=== PATIENT | male | born 1960 | race Caucasian/White ===

== ENCOUNTER 2023-07-09 08:12 | Outpatient (AMB) | payer OTHER, SELFPAY ==
--- NOTE | 2023-07-09 08:28 | A.OFFVIS_ITS ---
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 He reports history of multiple shoulder surgeries bilaterally. He states that his most recent surgery was approximately 30 years ago. The patient states that over the last few years he has lost significant range of motion in his right shoulder. He has had injections in the past which gave him minimal relief. He has also done physical therapy for 12 weeks over the last 6 months which aggravated his pain. The patient states that he has difficulty lifting his right hand above shoulder height. Allergies No Known Allergies Allergy (Verified 07/09/23 08:30) Medication List - Last Reconciled 07/09/23 by Venkatesh Bush MD allopurinol 300 mg PO DAILY [facility] Surgical History (Updated 07/09/23 @ 08:31 by Madhavi Teresa CMA) H/O shoulder surgery Social History Patient Tobacco Use Status: Never used Tobacco Current occupational status: employed 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 dept Physical Exam Vital Signs: BMI result Body Mass Index 29.7 Const Other: Well-nourished well-developed very friendly male awake alert and oriented x3 in no acute distress Extrem Other: Bilateral upper extremity examination shows good capillary refill, no skin lesions noted, normal sensation light touch Right shoulder examination shows decreased active and passive range of motion compared to his left shoulder, 4+ over 5 strength with supraspinatus testing, minimal crepitus with range of motion, positive impingement signs, tenderness over his acromioclavicular joint Results Reviewed Results Reviewed: Of the patient's right shoulder taken today show moderate glenohumeral joint changes type 2 severe acromioclavicular joint narrowing, multiple suture anchors the anterior glenoid, no acute bony abnormalities Assessment & Plan Assessment & Plan (1) Adhesive capsulitis of right shoulder: Code(s): M75.01 - Adhesive capsulitis of right shoulder Plan Mr. Villafuerte presents with progressively worsening right shoulder pain and stiffness due to impingement syndrome, acromioclavicular joint arthritis, glenohumeral joint arthritis and adhesive capsulitis. I had a lengthy discussion with the patient regarding the treatment options. He is not interested in undergoing total shoulder replacement surgery at this point. The risks and benefits of right shoulder arthroscopic surgery were discussed at length with the patient. The patient wishes to proceed. Surgery will most likely involve right shoulder diagnostic arthroscopy with distal clavicle excision, acromioplasty, glenohumeral joint debridement, anterior capsular release and manipulation under anesthesia. Patient will contact my office to pick a surgery date. He will follow-up as instructed. I did give him a prescription for Percocet to help with his pain in the meantime. Feel free to call me at any time should questions regarding his orthopedic management arise. Thank you very much for asking me to see this very friendly gentleman. I spent 22 minutes in reviewing the patient's records and imaging studies, seeing the patient and documenting in the medical record. Medications: New oxycodone-acetaminophen 5-325 mg (Percocet) Partial Fill upon patient request. 1 tab PO Q12H PRN 30 tabs 0RF pain Coding Level of Care Code New Pt Level 2 (49374) Diagnoses Adhesive capsulitis of right shoulder M75.01
[2023-07-09 08:30] VITALS: BMI 29.7
== END 2023-07-09 09:00 | disposition home or self-care (01) ==
PROVIDERS: Visit Provider Orthopaedic Surgery
DX: M75.01 Adhesive capsulitis of right shoulder (principal)
CPT/HCPCS: 99202

== ENCOUNTER 2023-07-09 10:11 | Outpatient (REF) | payer OTHER, SELFPAY ==
--- NOTE | ~2023-07-09 | XR_ITS ---
EXAMINATION: XR SHOULDER, RIGHT CLINICAL INFORMATION: Pain in left shoulder COMPARISON: None available. TECHNIQUE: AP neutral and transscapular Y views, 2 views, of the right shoulder. FINDINGS: Postsurgical changes with anchors along the glenoid. Severe degenerative changes at the glenohumeral joint with remodeling, hypertrophic change and subchondral sclerosis. XR/XR shoulder RT min 2V IMPRESSION: Postsurgical changes with anchors along the glenoid. Severe degenerative changes at the glenohumeral joint.
== END 2023-07-09 10:12 | disposition home or self-care (01) ==
LOC: HO.HOSX 10:11
PROVIDERS: Visit Provider Orthopaedic Surgery
DX: M25.512 Pain in left shoulder (principal); M75.01 Adhesive capsulitis of right shoulder
CPT/HCPCS: 73030

== ENCOUNTER 2023-09-04 07:49 | Outpatient (AMB) | payer OTHER, SELFPAY ==
--- NOTE | 2023-09-04 07:51 | MHC.OFFVIS ---
Intake Intake Visit Reasons: Pre-Op RT shld 09/12/23DR Intake Note: José Miguel is a 62 year old right hand dominant male who presents today with complaints of right shoulder pain. He reports history of multiple shoulder surgeries bilaterally. He states that his most recent surgery was approximately 30 years ago. The patient states that over the last few years he has lost significant range of motion in his right shoulder. He has had injections in the past which gave him minimal relief. He has also done physical therapy for 12 weeks over the last 6 months which aggravated his pain. The patient states that he has difficulty lifting his right hand above shoulder height. Pain management agreement reviewed and signed. Allergies No Known Allergies Allergy (Verified 09/04/23 07:52) Medication List - Last Reconciled 09/04/23 by Venkatesh Bush MD allopurinol 300 mg PO DAILY oxycodone-acetaminophen 5-325 mg (Percocet) 1 tab PO Q12H PRN PFSH Surgical History H/O shoulder surgery Social History Patient Tobacco Use Status: Never used Tobacco Current occupational status: employed Current occupation: [employer] Physical Exam Const Other: Well-nourished well-developed very friendly male awake alert and oriented x3 in no acute distress Lungs - clear to auscultation bilaterally with symmetric expansion Cardiovascular exam - regular rate and rhythm Abdominal exam - soft nontender nondistended Extrem Other: Bilateral upper extremity examination shows good capillary refill, no skin lesions noted, normal sensation light touch Right shoulder examination shows decreased range of motion when compared to his left shoulder, pain with range of motion, tenderness over his acromioclavicular joint, no instability Results Reviewed Results Reviewed: X-rays of the patient's right shoulder show severe acromioclavicular joint narrowing, type 2 acromion, moderate glenohumeral joint degenerative changes Assessment & Plan Assessment & Plan (1) Adhesive capsulitis of right shoulder: Code(s): M75.01 - Adhesive capsulitis of right shoulder Plan: Mr. Villafuerte presents with progressively worsening right shoulder pain and stiffness due to impingement syndrome, acromioclavicular joint arthritis and adhesive capsulitis as well as glenohumeral joint arthritis. I had a lengthy discussion with patient regarding the treatment options. At this point she has failed continued non operative treatments. The risks and benefits of right shoulder surgery were discussed at length with the patient. The patient wishes to proceed with surgery. Surgery will most likely involve right shoulder diagnostic arthroscopy with distal clavicle excision, acromioplasty, capsular release and manipulation under anesthesia. The patient was given a prescription for Dilaudid at his preoperative appointment. He will follow-up as instructed. Feel free to call me at any time should questions regarding his orthopedic management arise. I spent 22 minutes in reviewing the patient's records and imaging studies, seeing the patient and documenting in the medical record. Medications: New hydromorphone (Dilaudid) Partial Fill upon patient request. The patient will take Dilaudid instead of his oxycodone following his right shoulder surgery. 4 mg (2 x 2 mg) PO Q4H 30 tabs 0RF Coding Level of Care Code Est Pt Level 2 (13605) Diagnoses Adhesive capsulitis of right shoulder M75.01
== END 2023-09-04 08:13 | disposition home or self-care (01) ==
PROVIDERS: PCP Nurse Practitioner; Visit Provider Orthopaedic Surgery
DX: M75.01 Adhesive capsulitis of right shoulder (principal)
CPT/HCPCS: 99212

== ENCOUNTER → 2023-09-04 07:49 | Outpatient (BNVA) | payer OTHER, SELFPAY | PROVIDERS: PCP Nurse Practitioner; Visit Provider Orthopaedic Surgery ==

== ENCOUNTER 2023-09-12 07:10 | Day surgery (SDC) | payer OTHER, SELFPAY ==
--- NOTE | 2023-09-11 12:07 | P.CONAN_ITS ---
Documented by User: Марина Be NP 09/11/23 12:08 HPI - Anesthesia Eval Consult details Narrative: 63yo M for Right Shoulder Arthroscopy,distal clavical acromioplasty and manipulation PMFSH Active Problems Active Problems: All Active Problems (Updated 07/09/23 @ 09:05 by Venkatesh Bush MD) Adhesive capsulitis of right shoulder (Acute) Left shoulder pain (Acute) Past Medical History Medical History (Updated 09/11/23 @ 12:08 by Марина Be NP) HLD (hyperlipidemia) HTN (hypertension) Gout Surgical History Surgical History H/O shoulder surgery Social History Social History Patient Tobacco Use Status: Never used Tobacco Current occupational status: employed Current occupation: [employer] dept Meds Allergies Allergy/AdvReac Type Severity Reaction Status Date / Time No Known Allergies Allergy Verified 09/04/23 07:52 Active Medications: Current Medications Cefazolin Sodium/Dextrose (Ancef) 2 gm in 50 mls @ 100 mls/hr IV PREOP ONE Stop: 09/12/23 03:01 Home Medications Medication Instructions Recorded Confirmed Last Taken Type allopurinol 300 mg tablet 300 mg PO DAILY 07/09/23 07/09/23 Unknown History Exam Exam Date and Time: September 11, 2023 120 Assessment and Plan Assessment Anesthesia Assessment: Chart Reviewed Documented by User: David Romero MD 09/12/23 06:14 PMFSH Past Medical History Medical History (Updated 09/11/23 @ 12:08 by Марина Be NP) HLD (hyperlipidemia) HTN (hypertension) Gout Family History Family history of problems with anesthesia: No Surgical History Surgical History H/O shoulder surgery History of Problems with Anesthesia: No Social History Social History Patient Tobacco Use Status: Never used Tobacco Current occupational status: employed 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 Meds Allergies Allergy/AdvReac Type Severity Reaction Status Date / Time No Known Allergies Allergy Verified 09/04/23 07:52 Home Medications Medication Instructions Recorded Confirmed Last Taken Type allopurinol 300 mg tablet 300 mg PO DAILY 07/09/23 07/09/23 Unknown History Exam Airway Mallampati Class: II TM Dist: >3cm Neck ROM: Limited Heart: rrr Lungs: cta Assessment and Plan Assessment Anesthesia Assessment: Anesthesia Plan Discussed Final Anesthetic Review Family History of Problems with Anesthesia: No History of Problems with Anesthesia: No NPO: Yes ASA Class: II Final Preanesthetic Review: No Changes in Pt Med Stat, Meds/Allgs Chart Reviewed, Consent Obtained/Reviewed and Anes Risks/Benef Reviewed Patient Risk: Low Procedure Risk: Intermediate Anesthetic Plan Anesthetic Plan: GA and Regional Block Disposition: Standard PACU
[2023-09-12] VITALS (9 sets, daily range): BP systolic 103–184; BP diastolic 52–102; PULSE 55–72; RESP 16–20; TEMP 36.1–36.5; O2SAT 96–99; BMI 29.7
[2023-09-12] MEDS: Lactated Ringers 1,000 ML 100 ML IVCONT (08:29)
--- NOTE | 2023-09-12 10:19 | PM.OP ---
Brief Operative Note Date of Service: 09/12/23 Pre-op diagnosis: Right shoulder impingement syndrome, right shoulder arthritis, right shoulder adhesive capsulitis Post-op diagnosis: same Procedure: Right shoulder diagnostic arthroscopy with arthroscopic right shoulder glenohumeral joint debridement, arthroscopic right shoulder anterior capsular release, arthroscopic right shoulder acromioplasty, right shoulder manipulation under anesthesia Implants: none Surgeon: Venkatesh Bush MD Anesthesia: GLMA and regional Was an Catering Attendant used for this Procedure?: No Estimated blood loss (mL): 10 Pathology: none sent Condition: stable Disposition: PACU
--- NOTE | 2023-09-12 10:21 | W.PM.OPN ---
Operative Note Operative Note Date of Service: 09/12/23 Narrative: After the patient was identified as José Miguel Villafuerte and their right shoulder was initialed by myself the patient was brought to the holding area where a right shoulder interscalene regional block was performed by the anesthesiologist in routine fashion. The patient was then brought to the operating room where general anesthesia was induced by the anesthesiologist in routine fashion. The patient was given 2 g of IV Ancef preoperatively for infection prophylaxis. Examination under anesthesia of the patient's right shoulder showed decreased passive range of motion when compared to the left shoulder. The patient's right shoulder had passive forward flexion to 30 degrees compared to 170 degrees, external rotation to 10 degrees compared to 60 degrees, and internal rotation to 10 degrees compared to 40 degrees. The patient was gently positioned in the beach chair position with all bony prominences well padded. The patient's right shoulder region and upper extremity were prepped and draped in sterile fashion. A formal time-out was completed. A #11 scalpel blade was used to make a posterior portal 2 cm inferior and 1 cm medial to the posterolateral corner of the acromion. Blunt trocar technique was used to enter the glenohumeral joint in routine fashion. An anterior portal was made just lateral to the coracoid process after proper positioning was confirmed using a spinal needle. Diagnostic arthroscopy showed diffuse grade 3 and 4 degenerative changes of the glenoid and humeral head articular surfaces. The articular surfaces were then made smooth using the arthroscopic shaver. There was no evidence of rotator cuff tearing. There was no evidence of injury to the biceps tendon or its insertion onto the glenoid. There was inflammation of the anterior joint capsule consistent with adhesive capsulitis. The ArthroCare Wand was then used to perform an anterior capsular release between the inferior border of the biceps tendon and the superior border of the subscapularis tendon. The arthroscope was then placed from the posterior portal into the subacromial space. A lateral portal was made 2 fingerbreadths lateral to the anterior lateral corner of the acromion. The ArthroCare Wand was used to ablate soft tissues along the undersurface of the acromion as well as to excise the coracoacromial ligament. There was a sharp spur along the undersurface of the acromion which was removed using the hooded bur. The arthroscope was then placed into the lateral portal and the acromioplasty was completed with the bur in the posterior portal using the posterior aspect of the acromion as a cutting block. The ArthroCare Wand was then brought in through the anterior portal and was used to ablate soft tissues along the acromioclavicular joint and distal clavicle. There was already a space of 8 mm at the acromioclavicular joint so no distal clavicle excision was indicated. Any remaining bursal tissue was removed using the arthroscopic shaver. The subacromial space was irrigated and then drained. All arthroscopic instruments were removed. A gentle manipulation under anesthesia was then performed. Following the manipulation the right shoulder had forward flexion to 150 degrees, external rotation to 30 degrees and internal rotation to 30 degrees. The 3 portals were closed with 3-0 nylon interrupted suture. The subacromial space was injected with Marcaine. Dry sterile dressing was placed over all incisions. The patient's right upper extremity was placed into a sling. The patient was awoken and extubated in the operating room. The patient was transferred to the recovery room in stable condition.
[2023-09-12] MEDS: cefTRIAXone sodium 1 GM in 0.9 % Sodium Chloride 50 ML IV (10:47)
== END 2023-09-12 12:06 | disposition home or self-care (01) ==
PROVIDERS: PCP Nurse Practitioner; Visit Provider Orthopaedic Surgery
PROC: (CPT 29805; principal; 2023-09-12 09:00)
DX: M75.41 Impingement syndrome of right shoulder (principal); M19.011 Primary osteoarthritis, right shoulder; M75.01 Adhesive capsulitis of right shoulder; M10.9 Gout, unspecified; I10 Essential (primary) hypertension; E78.5 Hyperlipidemia, unspecified; Z79.899 Other long term (current) drug therapy; Z98.890 Other specified postprocedural states
CPT/HCPCS: 29825; 29826; J0171; J0690; J0696; J1100; J2371; J2405; J2795

== ENCOUNTER → 2023-09-12 07:10 | Outpatient (BNV) | payer OTHER, SELFPAY | PROVIDERS: PCP Nurse Practitioner; Visit Provider Orthopaedic Surgery | DX: M75.31 Calcific tendinitis of right shoulder (principal); M19.011 Primary osteoarthritis, right shoulder; M75.41 Impingement syndrome of right shoulder | CPT/HCPCS: 29825; 29826 ==

== ENCOUNTER 2023-09-23 11:11 | Outpatient (AMB) | payer OTHER, SELFPAY ==
--- NOTE | 2023-09-23 11:28 | MHC.OFFVIS ---
Intake Vital Signs 09/23/23 11:29 Height 6 ft 1 in Weight 225 lb BMI 29.7 Intake Visit Reasons: PO RT SHLD 09/12/23DR Intake Note: José Miguel a 63 year old male presents today for a post operative right shoulder , DOS 09/12/23 DR. Patient reports this morning he woke up in quite a bit of pain, stating episodes of pain that comes mostly at night. He feels a catching with certain positions. He has returned to lifting light weights at the gym. He denies any fevers or chills. He has been taking Dilaudid which gives him fairly good relief Allergies No Known Allergies Allergy (Verified 09/23/23 11:34) Medication List - Last Reconciled 09/23/23 by Venkatesh Bush MD hydromorphone (Dilaudid) 4 mg (2 x 2 mg) PO Q4H PFSH Medical History (Updated 09/23/23 @ 11:55 by Venkatesh Bush MD) Hyperthyroidism Kidney stones HLD (hyperlipidemia) HTN (hypertension) Gout Surgical History H/O removal of testicle H/O wrist surgery H/O knee surgery H/O shoulder surgery Social History Patient Tobacco Use Status: Former Tobacco user Quit Date: 2021 Tobacco use type: Cigarette Current occupational status: employed Current occupation: [employer] Physical Exam Vital Signs: BMI result Body Mass Index 29.7 Extrem Other: Right shoulder examination shows that the surgical incisions are well healed, no erythema, forward flexion to 150 degrees, external rotation 40 degrees, internal rotation to level L4, minimal crepitus with range of motion, mild discomfort with range of motion Assessment & Plan Assessment & Plan (1) Right shoulder pain: Code(s): M25.511 - Pain in right shoulder Plan Mr. Villafuerte doing very well after undergoing right shoulder arthroscopic surgery on 09/12/2023. His sutures were removed and Steri-Strips placed over his incisions. He will continue with his home stretching program. I did refill his prescription for Dilaudid. He will contact me prior to his follow-up appointment in 6 weeks should any questions or concerns arise. Feel free to call me at any time should questions regarding his orthopedic management arise. Medications: Refilled hydromorphone (Dilaudid) Partial Fill upon patient request. The patient will take Dilaudid instead of his oxycodone following his right shoulder surgery. 4 mg (2 x 2 mg) PO Q4H 30 tabs 0RF Coding Level of Care Code Global (31148) Diagnoses Right shoulder pain M25.511
[2023-09-23 11:29] VITALS: BMI 29.7
== END 2023-09-23 11:54 | disposition home or self-care (01) ==
PROVIDERS: PCP Nurse Practitioner; Visit Provider Orthopaedic Surgery
DX: M25.511 Pain in right shoulder (principal)
CPT/HCPCS: 99024

== ENCOUNTER → 2023-09-23 11:11 | Outpatient (BNVA) | payer OTHER, SELFPAY | PROVIDERS: PCP Nurse Practitioner; Visit Provider Orthopaedic Surgery ==

== ENCOUNTER 2023-11-25 09:32 | Outpatient (AMB) | payer OTHER, SELFPAY ==
--- NOTE | 2023-11-25 09:36 | A.OFFVIS_ITS ---
Intake Intake Visit Reasons: PO RT SHLD 09/12/23DR Intake Note: José Miguel a 63 year old male presents today for a post operative right shoulder , DOS 09/12/23 DR. Patient reports his pain is getting better. He continues with his home stretching program. He denies any fevers or chills. Today he is most concerned with progressively worsening right knee pain and giving way. He has had 3 surgeries on his right knee in the past. The most recent surgery was several years ago. He did get fairly good relief from that procedure. He states that his right knee will give out several times per day. He has done physical therapy which aggravated his symptoms. He has also had injections in the past which gave him minimal relief. Allergies No Known Allergies Allergy (Verified 11/25/23 09:36) Medication List - Last Reconciled 11/26/23 by Venkatesh Bush MD hydromorphone (Dilaudid) 2 mg PO Q12H PRN PFSH Medical History (Updated 11/25/23 @ 09:51 by Venkatesh Bush MD) Hyperthyroidism Kidney stones HLD (hyperlipidemia) HTN (hypertension) Gout Surgical History H/O removal of testicle H/O wrist surgery H/O knee surgery H/O shoulder surgery Social History Patient Tobacco Use Status: Former Tobacco user Quit Date: 2021 Tobacco use type: Cigarette Current occupational status: employed Current occupation: [employer] Physical Exam Const Other: Well-nourished well-developed very friendly male awake alert and oriented x3 in no acute distress Lungs - clear to auscultation bilaterally with symmetric expansion Cardiovascular exam - regular rate and rhythm Abdominal exam - soft nontender nondistended Extrem Other: Bilateral lower extremity examination shows good capillary refill, no skin lesions noted, normal sensation light touch Right knee examination shows a minimal effusion, mild crepitus with range of motion, tenderness along his medial and lateral joint lines, positive Val's test, no instability Right shoulder examination shows slightly decreased range of motion when compared to his left shoulder, the surgical incisions are well healed, no erythema, minimal discomfort with range of motion Results Reviewed Results Reviewed: X-rays of the patient's right knee taken today show moderate joint space narrowing, no acute bony abnormalities Assessment & Plan Assessment & Plan (1) Right knee pain: Code(s): M25.561 - Pain in right knee (2) Right shoulder pain: Code(s): M25.511 - Pain in right shoulder Plan Mr. Villafuerte continues to do well after undergoing left shoulder arthroscopic surgery on 09/12/2023. He will continue with his physical therapy exercises to prevent stiffness. The do's and don'ts of lifting were discussed at length with the patient. The patient also has progressively worsening right knee pain and mechanical symptoms due to degenerative joint disease, medial meniscus tearing and possible lateral meniscus tearing. I had a lengthy discussion with the patient regarding the treatment options. The patient wishes to hold off on total knee replacement surgery for as long as possible. Revision right knee arthroscopic surgery risks and benefits were discussed at length with the patient. Because of the patient's mechanical symptoms he may get significant improvement in his symptoms following an arthroscopic procedure. Patient understands that he may not get 100% relief of his symptoms depending on the severity of his degenerative changes. The patient wishes to proceed with the arthroscopic surgery. He will contact my office to pick a surgery date. He will follow-up as instructed. F eel free to call me at any time should questions regarding his orthopedic management arise. I spent 22 minutes in reviewing the patient's records and imaging studies, seeing the patient and documenting in the medical record. Orders: Orders XR knee RT 3V 11/25/23 M25.561 - Pain in right knee Coding Level of Care Code Est Pt Level 2 (25832) Diagnoses Right knee pain M25.561 Right shoulder pain M25.511
== END 2023-11-25 10:13 | disposition home or self-care (01) ==
PROVIDERS: PCP Nurse Practitioner; Visit Provider Orthopaedic Surgery
DX: M25.561 Pain in right knee (principal); M25.511 Pain in right shoulder
CPT/HCPCS: 99213

== ENCOUNTER 2023-11-25 09:32 | Outpatient (REF) | payer OTHER, SELFPAY ==
--- NOTE | ~2023-11-25 | XR_ITS ---
EXAMINATION: XR KNEE, RIGHT CLINICAL INFORMATION: Pain in right knee. COMPARISON: None available. TECHNIQUE: 3 views of the right knee. FINDINGS: The bones are diffusely demineralized. No significant joint effusion. Advanced tricompartmental degenerative change most severe in the patellofemoral and medial compartments with compartment space narrowing and hypertrophic change. XR/XR knee RT 3V IMPRESSION: Advanced tricompartmental degenerative change.
== END 2023-11-25 09:33 | disposition home or self-care (01) ==
LOC: HO.HOSX 09:32
PROVIDERS: PCP Nurse Practitioner; Visit Provider Orthopaedic Surgery
DX: M25.561 Pain in right knee (principal); M25.511 Pain in right shoulder
CPT/HCPCS: 73562

== ENCOUNTER 2024-02-11 07:49 | Outpatient (AMB) | payer OTHER, SELFPAY ==
--- NOTE | 2024-02-11 07:53 | A.OFFVIS_ITS ---
Intake Intake Visit Reasons: Discuss Right TKA instead of Right knee Intake Note: José Miguel is a 63 year old male who presents with progressively worsening right knee pain. The patient describes his pain as sharp and severe in nature, 09/02. His pain has gotten worse in spite of continued non operative treatments as well as 3 knee arthroscopic surgeries in the past. The most recent surgery gave him minimal relief. Has had injections in the past which gave him no relief. He has also tried Tylenol, anti-inflammatory medicines and Dilaudid which gave him only mild relief. The patient has difficulty walking even short distances because of his pain. Has done physical therapy which aggravated his pain. At this point his right knee pain is interfering with his activities of daily living and his ability to sleep well through the night. Patient reports he is scheduled for Right knee on 03/05/2024 and would like to discuss changing his surgery to TKA. Allergies No Known Allergies Allergy (Verified 11/25/23 09:36) Medication List - Last Reconciled 02/11/24 by Venkatesh Bush MD hydromorphone 2 mg (1/2 x 4 mg) PO Q24H PRN PFSH Medical History (Updated 02/11/24 @ 08:06 by Venkatesh Bush MD) Hyperthyroidism Kidney stones HLD (hyperlipidemia) HTN (hypertension) Gout Surgical History H/O removal of testicle H/O wrist surgery H/O knee surgery H/O shoulder surgery Social History Patient Tobacco Use Status: Former Tobacco user Quit Date: 2021 Tobacco use type: Cigarette Current occupational status: employed Current occupation: [employer] dept Physical Exam Const Other: Well-nourished well-developed very friendly male awake alert and oriented x3 in no acute distress Extrem Other: Bilateral lower extremity examination shows good capillary refill, no skin lesions noted, normal sensation light touch Right knee examination shows a minimal effusion, palpable crepitus with range of motion, pain with range of motion, range of motion from -3 degrees to 115 degrees, no instability Results Reviewed Results Reviewed: X-rays of the patient's right knee show end-stage degenerative joint disease with grade 4 qstj-qt-zzis arthritis, subchondral sclerosis, osteophyte formation, no acute abnormalities Assessment & Plan Assessment & Plan (1) Arthritis of right knee: Code(s): M17.11 - Unilateral primary osteoarthritis, right knee Plan Mr. Villafuerte presents with progressively worsening right knee pain due to end- stage degenerative joint disease. I discussion with the patient regarding the treatment options. At this point he has failed both continued non operative treatments as well as 3 arthroscopic surgeries. The risks and benefits of right total knee replacement surgery were discussed at length with the patient. The patient wishes to proceed with surgery. He will be scheduled for next available date. I will see him back prior to his surgery to answer any final questions that he might have. Feel free to call me at any time should questions regarding his orthopedic management arise. I spent 22 minutes in reviewing the patient's records and imaging studies, seeing the patient and documenting in the medical record. Coding Level of Care Code Est Pt Level 2 (36567) Diagnoses Arthritis of right knee M17.11
== END 2024-02-11 08:03 | disposition home or self-care (01) ==
PROVIDERS: PCP Nurse Practitioner; Visit Provider Orthopaedic Surgery
DX: M17.11 Unilateral primary osteoarthritis, right knee (principal)
CPT/HCPCS: 99214

== ENCOUNTER → 2024-02-11 07:49 | Outpatient (BNVA) | payer OTHER, SELFPAY | PROVIDERS: PCP Nurse Practitioner; Visit Provider Orthopaedic Surgery ==

== ENCOUNTER 2024-02-17 09:16 | Outpatient (AMB) | payer OTHER, SELFPAY ==
[2024-02-17 09:19] VITALS: BP 175/100; BMI 29.7
--- NOTE | 2024-02-17 09:19 | A.OFFVIS_ITS ---
Intake Vital Signs 02/17/24 09:19 Height 6 ft 1 in Weight 225 lb BMI 29.7 BP 175/100 H Intake Visit Reasons: Pain control Intake Note: José Miguel is a 63 year old male who presents with progressively worsening right knee pain. The patient describes his pain as sharp and severe in nature, 09/02. His pain has gotten worse in spite of continued non operative treatments as well as 3 knee arthroscopic surgeries in the past. The most recent surgery gave him minimal relief. Has had injections in the past which gave him no relief. He has also tried Tylenol, anti-inflammatory medicines and Dilaudid which gave him only mild relief. The patient has difficulty walking even short distances because of his pain. Has done physical therapy which aggravated his pain. At this point his right knee pain is interfering with his activities of daily living and his ability to sleep well through the night. Allergies No Known Allergies Allergy (Verified 02/17/24 09:23) Medication List - Last Reconciled 02/17/24 by Venkatesh Bush MD celecoxib (Celebrex) 200 mg PO BID tramadol 50 mg PO Q12H PRN PFSH Medical History Hyperthyroidism Kidney stones HLD (hyperlipidemia) HTN (hypertension) Gout Surgical History H/O removal of testicle H/O wrist surgery H/O knee surgery H/O shoulder surgery Social History Patient Tobacco Use Status: Former Tobacco user Quit Date: 2021 Tobacco use type: Cigarette Current occupational status: employed Current occupation: [employer] Physical Exam Vital Signs: Last Vital Signs BP 175/100 H 02/17/24 09:19 BMI result Body Mass Index 29.7 Const Other: Well-nourished well-developed very friendly male awake alert and oriented x3 in no acute distress Extrem Other: Bilateral lower extremity examination shows good capillary refill, no skin lesions noted, normal sensation light touch Right knee examination shows a mild effusion, palpable crepitus with range of motion, pain with range of motion, range of motion from -3 degrees to 115 degrees, no instability Results Reviewed Results Reviewed: X-rays of the patient's right knee show end-stage degenerative joint disease with grade 4 [id number]-[id number] arthritis, subchondral sclerosis, no acute bony abnormalities Assessment & Plan Assessment & Plan (1) Arthritis of right knee: Code(s): M17.11 - Unilateral primary osteoarthritis, right knee Plan Mr. Villafuerte presents with progressively worsening right knee pain due to end- stage degenerative joint disease. I had a lengthy discussion with the patient regarding the treatment options. At this point he has failed continued non operative treatments. The risks and benefits of right total knee replacement surgery were discussed at length with the patient. The patient wishes to proceed with surgery. He will be scheduled for a next available date. He will follow-up as instructed. I did give him a prescription for tramadol and a prescription for Celebrex to help with his pain in the meantime. Feel free to call me at any time should questions regarding his orthopedic management arise. I spent 22 minutes in reviewing the patient's records and imaging studies, seeing the patient and documenting in the medical record. Medications: New celecoxib (Celebrex) 200 mg PO BID 60 caps 2RF tramadol 50 mg PO Q12H PRN 60 tabs 0RF pain Coding Level of Care Code Est Pt Level 2 (48857) Diagnoses Arthritis of right knee M17.11
== END 2024-02-17 09:53 | disposition home or self-care (01) ==
PROVIDERS: PCP Nurse Practitioner; Visit Provider Orthopaedic Surgery
DX: M17.11 Unilateral primary osteoarthritis, right knee (principal)
CPT/HCPCS: 99214

== ENCOUNTER → 2024-02-17 09:16 | Outpatient (BNVA) | payer OTHER, SELFPAY | PROVIDERS: PCP Nurse Practitioner; Visit Provider Orthopaedic Surgery ==

== ENCOUNTER → 2024-04-29 08:57 | Outpatient (BNVA) | payer OTHER, SELFPAY | PROVIDERS: PCP Nurse Practitioner; Visit Provider Orthopaedic Surgery ==

== ENCOUNTER 2024-05-20 08:12 | Outpatient (AMB) | payer OTHER, SELFPAY ==
--- NOTE | 2024-05-20 08:14 | A.OFFVIS_ITS ---
Vital Signs 05/20/24 08:15 Height 6 ft 1 in Weight 225 lb BMI 29.7 Intake Visit Reasons: R TKA 05/24/24 w/DR Intake Note: José Miguel is a 63 year old male who presents with progressively worsening right knee pain. The patient describes his pain as sharp and severe in nature, 09/02. His pain has gotten worse in spite of continued non operative treatments as well as 3 knee arthroscopic surgeries in the past. The most recent surgery gave him minimal relief. Has had injections in the past which gave him no relief. He has also tried Tylenol, anti-inflammatory medicines and Dilaudid which gave him only mild relief. The patient has difficulty walking even short distances because of his pain. Has done physical therapy which aggravated his pain. At this point his right knee pain is interfering with his activities of daily living and his ability to sleep well through the night. Allergies No Known Allergies Allergy (Verified 05/20/24 08:18) Medication List - Last Reconciled 05/20/24 by Venkatesh Bush MD losartan 100 mg PO BEDTIME walker Folding front wheeled walker [facility] Medical History Chronic shoulder pain Chronic knee pain LORY (generalized anxiety disorder) Hemorrhoid History of kidney stones Hx of testicular cancer Hyperparathyroidism Lower urinary tract symptoms (LUTS) Low vitamin D level Osteoarthritis Alcohol use disorder in remission Kidney stones HLD (hyperlipidemia) HTN (hypertension) Gout Surgical History History of parathyroidectomy H/O removal of testicle H/O wrist surgery H/O knee surgery H/O shoulder surgery Social History Are you a primary lead care manager to a significant other at home: No Do you presently have visiting nurse or other home services: No Patient Tobacco Use Status: Former Tobacco user Tobacco use type: Cigarette Current occupational status: employed Current occupation: [employer] Physical Exam Vital Signs: BMI result Body Mass Index 29.7 Const Other: Well-nourished well-developed very friendly male awake alert and oriented x3 in no acute distress Extrem Other: Bilateral lower extremity examination shows good capillary refill, no skin lesions noted, normal sensation light touch Right knee examination shows a minimal effusion, palpable crepitus with range of motion, pain with range of motion, range of motion from -3 degrees to 115 degrees, no instability Results Reviewed Results Reviewed: X-rays of the patient's right knee show severe joint space narrowing with grade 4 pstt-al-tgiq arthritis, subchondral sclerosis, osteophyte formation, no acute bony abnormalities Assessment & Plan Assessment & Plan (1) Arthritis of right knee: Code(s): M17.11 - Unilateral primary osteoarthritis, right knee Category: Medical Plan Mr. Villafuerte presents with progressively worsening right knee pain due to end- stage degenerative joint disease. I had a lengthy discussion with the patient regarding the treatment options. At this point he has failed continued arthroscopic surgeries and non operative treatment. The risks and benefits of right total knee replacement surgery were discussed at length with the patient. The patient wishes to proceed with surgery. clinical services specialist will be consulted following his surgery for home physical therapy and nursing. The patient will follow-up as instructed. Feel free to call me at any time should questions regarding his orthopedic management arise. I spent 22 minutes in reviewing the patient's records and imaging studies, seeing the patient and documenting in the medical record. Coding Level of Care Code Est Pt Level 3 (87701) Diagnoses Arthritis of right knee M17.11
[2024-05-20 08:15] VITALS: BMI 29.7
== END 2024-05-20 08:34 | disposition home or self-care (01) ==
LOC: HO.HOS 08:12
PROVIDERS: PCP Nurse Practitioner; Visit Provider Orthopaedic Surgery
DX: M17.11 Unilateral primary osteoarthritis, right knee (principal)
CPT/HCPCS: 99214

== ENCOUNTER → 2024-05-20 08:12 | Outpatient (BNVA) | payer OTHER, SELFPAY | PROVIDERS: PCP Nurse Practitioner; Visit Provider Orthopaedic Surgery ==

== ENCOUNTER 2024-05-24 06:00 | Inpatient (IN) | payer OTHER, SELFPAY ==
[2024-05-17 13:31] VITALS: BP 165/101; PULSE 65; RESP 18; O2SAT 97; BMI 29.2
--- NOTE | 2024-05-17 14:03 | HO.ANESPROP2 ---
Documented by User: Марина Be NP 05/20/24 15:02 HPI - Anesthesia Eval Consult details Narrative: 63yo M for Right Knee Replacement Total, 05/24/24 Medically optimized per [facility] preop clinic No recent illness No CP/SOB with strength training dailly Urinary retention post parathyroidectomy. Discussed increased risk of POUR with spinal anesthesia. [facility] Active Problems Active Problems: All Active Problems Arthritis of right knee (Acute) Right knee pain (Acute) Right shoulder pain (Acute) Adhesive capsulitis of right shoulder (Acute) Left shoulder pain (Acute) Past Medical History Medical History Chronic shoulder pain Chronic knee pain LORY (generalized anxiety disorder) Hemorrhoid History of kidney stones Hx of testicular cancer Hyperparathyroidism Lower urinary tract symptoms (LUTS) Low vitamin D level Osteoarthritis Alcohol use disorder in remission Kidney stones HLD (hyperlipidemia) HTN (hypertension) Gout Family History Family history of problems with anesthesia: No Surgical History Surgical History History of parathyroidectomy H/O removal of testicle H/O wrist surgery H/O knee surgery H/O shoulder surgery History of Problems with Anesthesia: No Social History Social History Are you a primary career law clerk to a significant other at home: No Do you presently have visiting nurse or other home services: No Patient Tobacco Use Status: Former Tobacco user Tobacco use type: Cigarette Use of substances other than those prescribed or required for medical reasons: No Have you been hit, kicked, punched, or otherwise hurt by someone within the past year? If so, by whom?: No Are you DNR?: No Advance Directives: No Advance Directives Information Provided: Yes Advance Directives on File: No Recently lost weight without trying: No Eating poorly because of decreased appetite: No Nutrition Risks: No Nutritional Risk Poor oral hygiene: Yes (one missing on the bottom) Current occupational status: employed Current occupation: [employer] dept Meds Allergies Allergy/AdvReac Type Severity Reaction Status Date / Time No Known Allergies Allergy Verified 05/24/24 06:09 Home Medications ?Medication ?Instructions ?Recorded ?Confirmed ?Last Taken ?Type losartan 100 mg tablet 100 mg PO BEDTIME 05/14/24 05/24/24 05/24/24 History Exam Height,Weight and Vital Signs: Height 6 ft 1 in Weight 100.244 kg Last Vital Signs Pulse 65 05/17/24 13:31 Resp 18 05/17/24 13:31 BP 165/101 H 05/17/24 13:31 Pulse Ox 97 05/17/24 13:31 O2 Del Method Room Air 05/17/24 13:31 Pertinent Lab Results Pertinent Lab Results: 04/2024 CBC and BMP WNL Narrative Narrative: EKG 04/2024 NSR @ 63 Airway Mallampati Class: II TM Dist: >3cm Loose/Missing/Broken Teeth: Yes (1 x pulled lower left) Heart: RRR Lungs: CTAB Assessment and Plan Assessment Anesthesia Assessment: Anesthesia Plan Discussed and PAT Visit Final Anesthetic Review Family History of Problems with Anesthesia: No History of Problems with Anesthesia: No Documented by User: Mely Saab MD 05/24/24 09:00 [facility] Past Medical History Medical History Chronic shoulder pain Chronic knee pain LORY (generalized anxiety disorder) Hemorrhoid History of kidney stones Hx of testicular cancer Hyperparathyroidism Lower urinary tract symptoms (LUTS) Low vitamin D level Osteoarthritis Alcohol use disorder in remission Kidney stones HLD (hyperlipidemia) HTN (hypertension) Gout Surgical History Surgical History History of parathyroidectomy H/O removal of testicle H/O wrist surgery H/O knee surgery H/O shoulder surgery Social History Social History Are you a primary career law clerk to a significant other at home: No Do you presently have visiting nurse or other home services: No Patient Tobacco Use Status: Former Tobacco user Tobacco use type: Cigarette Use of substances other than those prescribed or required for medical reasons: No Have you been hit, kicked, punched, or otherwise hurt by someone within the past year? If so, by whom?: No Are you DNR?: No Advance Directives: No Advance Directives Information Provided: Yes Advance Directives on File: No Recently lost weight without trying: No Eating poorly because of decreased appetite: No Nutrition Risks: No Nutritional Risk Poor oral hygiene: Yes (one missing on the bottom) Current occupational status: employed Current occupation: [employer] de[employer] Meds Allergies Allergy/AdvReac Type Severity Reaction Status Date / Time No Known Allergies Allergy Verified 05/24/24 06:09 Home Medications ?Medication ?Instructions ?Recorded ?Confirmed ?Last Taken ?Type losartan 100 mg tablet 100 mg PO BEDTIME 05/14/24 05/24/24 05/24/24 History Assessment and Plan Final Anesthetic Review NPO: Yes ASA Class: III Final Preanesthetic Review: No Changes in Pt Med Stat, Meds/Allgs Chart Reviewed, Consent Obtained/Reviewed and Anes Risks/Benef Reviewed Patient Risk: Intermediate Procedure Risk: Intermediate Anesthetic Plan Anesthetic Plan: Spinal and Regional Block Disposition: Standard PACU
[2024-05-17 15:46] LABS: MRSA Nasal PCR NEGATIVE (Negative); SA Nasal PCR NEGATIVE (Negative)
[2024-05-24] VITALS (10 sets, daily range): BP systolic 125–168; BP diastolic 76–100; PULSE 57–80; RESP 12–20; TEMP 36.1–37.1; O2SAT 97–100
[2024-05-24] MEDS: Lactated Ringers 1,000 ML 100 ML IVCONT ×3 (06:34→23:16)
--- NOTE | 2024-05-24 09:00 | HO.POSTANES ---
Post Anesthesia Evaluation Post Anesthesia Evaluation Date of Service: 05/24/24 Vital Signs: Vital Signs Temp Pulse Resp BP Pulse Ox O2 Del Method 05/24/24 07:10 97.6 F 57 16 168/100 H 98 Room Air
--- NOTE | 2024-05-24 10:21 | PM.OP ---
Brief Operative Note Date of Service: 05/24/24 Pre-op diagnosis: Right knee degenerative joint disease Post-op diagnosis: same Procedure: Right total knee arthroplasty Implants: [place] [employer] cemented posterior stabilized total knee arthroplasty with a femoral component size 5 right, tibial component size 6, polyethylene liner size 6 with 10 mm of thickness, an asymmetric patellar component size 35 with 10 mm of thickness Surgeon: Venkatesh Bush MD Anesthesia: regional and spinal Was an Corporate Director Of Pharmacy used for this Procedure?: No Estimated blood loss (mL): 200 Pathology: other (Bony fragments from the right femur, tibia and patella) Condition: stable Disposition: PACU
--- NOTE | 2024-05-24 10:27 | P.OP_ITS ---
Operative Note Operative Note Date of Service: 05/24/24 Narrative: After the patient was identified as Gaviota Villafuerte and his right knee was initialed by myself the patient was brought to the holding area where a right leg nerve block was performed by the anesthesiologist in routine fashion. The patient was then brought to the operating room where conscious sedation and spinal anesthesia were performed by the anesthesiologist in routine fashion. The patient was given 2 g of IV Ancef preoperatively for infection prophylaxis. The patient's right lower extremity was prepped and draped in sterile fashion. A formal time-out was completed. The patient's right knee was placed onto a s mall bump to produce 30? of knee flexion during exposure. A #10 scalpel blade was used to make a midline incision extending 1 handbreadth proximal and distal to the patella. A second #10 scalpel blade was used to dissect the subcutaneous tissues down to the extensor mechanism. The subcutaneous flaps were maintained as thick as possible. A medial parapatellar arthrotomy was then performed using a #10 scalpel blade. The arthrotomy was begun just medial to the patellar tendon. The arthrotomy was continued 1 cm medial to the patella and then 5 mm into the medial aspect of the quadriceps tendon. The infrapatellar fat pad was partially excised to help with exposure. The soft tissue retinaculum was raised one-half of the way around the medial aspect of the proximal tibia. The patella was everted and the knee was flexed to 90?. There was no injury to the patellar tendon or its insertion onto the tibial tubercle. A drill bit was introduced into the distal aspect of the femur with a starting point 1 cm anterior to the origin of the posterior cruciate ligament. The intramedullary alignment kwame was put into place. The distal alignment guide was set for a 5 degree valgus cut. The distal cutting block was put into place and was held with 4 pins. The intramedullary alignment kwame was removed. Soft tissues were retracted in the distal femoral cut was made using a sagittal saw. The distal aspect of the femur measured to be a size 5 right component. Two drill holes were placed into the distal aspect of the femur marking 3? of external rotation. The distal cutting block was impacted into place and was held with 2 pins. Soft tissues were retracted and the 4 distal femoral cuts were made using a sagittal saw. Final notching and drilling of the distal aspect of the femur were performed in routine fashion. The trial femoral component was impacted into place. The knee was taken through a full range of motion. The patella tracked well. The patella was everted and the knee was flexed to 90?. The trial component was removed and our attention was directed to the proximal tibia. The medial and lateral menisci were removed using a #10 scalpel blade. A small rim of the medial meniscus was left intact to help prevent injury to the medial collateral ligament. A drill bit was then introduced into the proximal tibia with a starting point midway from medial to lateral and one-third of the way posteriorly. The intramedullary alignment kwame was put into place. The proximal tibial cutting guide was placed over the alignment kwame in line with the 2nd toe. The guide was held in place using 3 pins. The intramedullary alignment kwame was removed. Soft tissues were retracted and the proximal tibial cut was made using a sagittal saw. The proximal tibia measured to be a size 6 component. The tibial tray was put into place with a 10 mm liner. The femoral component was impacted into place. The knee was taken through a full range of motion. There was full flexion and full extension. There was no instability with varus or valgus stress testing with the knee in flexion or extension. The patella tracked well with no medially directed force. The rotation of the tibial tray was marked using electrocautery with the knee in extension. The patella was everted and the knee was flexed to 90?. All trial components were removed. The tibial tray was placed onto the proximal tibia in line with the electrocautery gaviota. The tray was held in place using 3 pins. Final broaching of the proximal tibia was performed in routine fashion. The trial liner and trial femoral component were put into place. The knee was brought into extension and our attention was directed to the patella. The patella measured 25 mm in thickness. The patellar resection guide was set for a 10 mm resection. Soft tissues were retracted and the patella cut was made using a sagittal saw. The remaining patella measured 15 mm in thickness. The undersurface of the patella was stephan ured to be a size 35 asymmtric component. Three drill holes were placed into the undersurface of the patella in routine fashion. The trial component was put into place. The knee was taken through a full range of motion. The patella tracked well. The patella was everted and the knee was flexed to 90?. All trial components were removed. The knee was once again brought into extension and placed onto a small bump. The knee joint was irrigated with copious amounts of normal saline solution via pulse lavage while the cement was mixed. The patella was everted and the knee was flexed to 90?. A small amount of cement was placed along the posterior aspects of the tibial and femoral components. Cement was then pressurized into the proximal tibia. The tibial component was impacted into place. Any excess cement was removed. The polyethylene liner was then impacted into place. Cement was then pressurized into the distal aspect of the femur. A small amount of cement was placed into the intramedullary canal to help reduce bleeding. The femoral component was impacted into place. Any excess cement was removed. The knee was then brought into extension. Cement was pressurized into the undersurface of the patella. The patellar component was put into place and was held with a patella clamp. Any excess cement was removed. Once the cement had hardened the patellar clamp was removed. The knee was taken through a full range of motion. There was full flexion and extension. There was no instability with varus or valgus stress testing with the knee in flexion or extension. The patella tracked well with no medially directed force. The knee joint was irrigated with copious amounts of normal saline solution via pulse lavage. Any significant bleeding vessels were coagulated. The patient's right knee was placed onto a small bump. The arthrotomy was closed with #2 Ethibond [id number] interrupted suture as well as #1 Vicryl [id number] interrupted suture. The wound was once again irrigated. The subcutaneous tissues were closed with 0 Vicryl and 2-0 Vicryl interrupted sutures. The skin was closed with skin yecenia. Dry sterile dressing and Kevin bandages were placed over the patient's right knee. The patient was awake and alert. The patient was transferred to the recovery room in stable condition.
[2024-05-24] MEDS: HYDROmorphone HCl 0.5 MG/0.5 ML SYRINGE 0.25 MG IVPUSH ×2 (12:21→16:25)
[2024-05-24] MEDS: oxyCODONE HCl Immed Release 5 MG TABLET 10 MG PO ×3 (13:16→23:13)
[2024-05-24] MEDS: oxyCODONE HCl ER 10 MG TAB.ER.12H PO ×2 (13:17→20:54)
--- NOTE | 2024-05-24 13:25 | PHA.MEDREC ---
Pharmacy Consult ? Medication Reconciliation Pharmacy has completed the medication reconciliation.
--- NOTE | 2024-05-24 14:03 | W.PM.OPN ---
Operative Note Operative Note Date of Service: 05/28/24 Narrative: Op note completed.
[2024-05-24] MEDS: Acetaminophen 325 MG TABLET 650 MG PO (14:06)
--- NOTE | 2024-05-24 14:25 | PC.NURSE ---
Patient medicated with Dilaudid,Roxicodone,Tylenol,Oxycontin started ,still reports # 10 pain ,JAG Duran notified,assisted patient back to bed
[2024-05-24] MEDS: ceFAZolin Sodium/Dextrose,Iso 2 GM/50 ML PIGGYBACK IV ×2 (15:57→23:30)
[2024-05-24] MEDS: Aspirin 325 MG TABLET PO (15:58)
[2024-05-24] MEDS: 0.9 % Sodium Chloride Flush 3 ML SYRINGE IVFLUSH ×2 (15:59→19:58)
[2024-05-24] MEDS: HYDROmorphone HCl 0.5 MG/0.5 ML SYRINGE IVPUSH (19:55)
[2024-05-24] MEDS: Gabapentin 100 MG CAPSULE PO (20:53)
[2024-05-24] MEDS: methocarbamoL 500 MG TABLET PO (20:53)
[2024-05-25 00:49] VITALS: RESP 18
[2024-05-25] MEDS: HYDROmorphone HCl 0.5 MG/0.5 ML SYRINGE IVPUSH ×3 (00:49→10:18)
[2024-05-25 03:04] VITALS: BP 171/81; PULSE 76; RESP 18; TEMP 37.4; O2SAT 99
[2024-05-25 05:59] LABS: Basophils Percent Auto 0.1 % (0-2); Eosinophils Percent Auto 0.1 % (0-4); Hematocrit 34.6 % (42.0-52.0); Hemoglobin 11.7 g/dl (14.0-18.0); Imm Gran Abs Auto 0.06 X10*3/uL (0.00-0.03); Imm Gran Pct Auto 0.5 % (0.0-0.4); Lymphocytes Absolute Auto 1.4 X10*3/uL (1.2-4.9); Lymphocytes Percent Auto 11.4 % (20-40); MANUAL DIFF FLAG SCAN; Mean Corpuscular HGB Conc 33.8 g/dl (31.0-36.0); Mean Corpuscular Hemoglobin 29.5 pg (27.0-33.0); Mean Corpuscular Volume 87.4 fL (80.0-98.0); Mean Platelet Volume 10.3 fL (9.4-12.4); Monocytes Absolute Auto 1.5 X10*3/uL (0.1-1.2); Monocytes Percent Auto 12.3 % (2-11); Neutrophils Absolute Auto 9.3 x10*3/uL (2.0-8.3); Neutrophils Percent Auto 75.6 % (45-73); Platelet Count 238 X10*3/uL (160-400); Red Blood Count 3.96 X10*6/uL (4.60-5.80); Red Cell Distribution Width 12.7 % (11.0-16.0); SCAN SMEAR FLAG 1; White Blood Count 12.2 X10*3/uL (4.8-10.8)
[2024-05-25 06:20] VITALS: RESP 18
[2024-05-25 06:21] LABS: SLIDE REVIEW VERIFIED
[2024-05-25 06:39] LABS: Anion Gap 13 (12-20); Blood Urea Nitrogen 15 mg/dL (9-16); Calcium 8.4 mg/dL (8.4-10.2); Carbon Dioxide 23 mmol/L (22-29); Chloride 109 mmol/L (96-108); Creatinine Clr Calc Pharmacy 109.6; Estimated Glomerular Filt Rate > 60; Glucose Fasting 118 mg/dL (60-99); Potassium 3.8 mmol/L (3.3-5.1); Sodium 141 mmol/L (135-145)
[2024-05-25 07:37] VITALS: BP 164/88; PULSE 80; RESP 16; TEMP 37.6; O2SAT 99
[2024-05-25] MEDS: HYDROmorphone HCl 2 MG TABLET PO ×2 (07:44→12:15)
[2024-05-25] MEDS: oxyCODONE HCl ER 10 MG TAB.ER.12H PO ×2 (09:10→21:21)
[2024-05-25] MEDS: Aspirin 325 MG TABLET PO ×2 (09:11→21:20)
[2024-05-25] MEDS: Lactated Ringers 1,000 ML 100 ML IVCONT (09:31)
--- NOTE | 2024-05-25 13:28 | MHC.CM.PN ---
Patient lives in a home alone. Ambulates w/ a cane. Has a walker in the home as well. Otherwise independent. PCP Ron Lara NP Pt completed HCP naming [facility] as ex- Sun. DP: PT rec home w/ services. Patient does not have a preference to agency. CM searching for agency that accepts insurance and services [place]. CM will continue to follow.
--- NOTE | 2024-05-25 13:42 | HO.POSTANES ---
Post Anesthesia Evaluation Post Anesthesia Evaluation Date of Service: 05/24/24 Vital Signs: Vital Signs Temp Pulse Resp BP Pulse Ox O2 Del Method 05/25/24 07:37 99.6 F 80 16 164/88 H 99 Room Air 05/25/24 06:20 18 05/25/24 03:04 99.3 F 76 18 171/81 H 99 Room Air Anesthesia: Spinal Mental Status: Awake Pain Control: Satisfactory Nausea/Vomiting: None Hydration: Adequate
[2024-05-25] MEDS: Acetaminophen 325 MG TABLET 650 MG PO (14:30)
[2024-05-25 15:52] VITALS: BP 159/83; PULSE 81; RESP 18; TEMP 37.1; O2SAT 97
[2024-05-25] MEDS: 0.9 % Sodium Chloride Flush 3 ML SYRINGE IVFLUSH ×2 (15:57→21:24)
[2024-05-25 19:52] VITALS: BP 155/76; PULSE 83; RESP 18; TEMP 37; O2SAT 99
--- NOTE | 2024-05-25 19:56 | P.PNOP_ITS ---
Subjective Subjective Date of Service: 05/25/24 Interval history: POD 1 sp RT TKA no overnight events denies sob cp palpitations Physical Exam Vital Signs: Vital Signs: Last Vital Signs Temp 98.6 F 05/25/24 19:52 Pulse 83 05/25/24 19:52 Resp 18 05/25/24 19:52 BP 155/76 H 05/25/24 19:52 Pulse Ox 99 05/25/24 19:52 O2 Del Method Room Air 05/25/24 19:52 O2 Flow Rate 8 05/24/24 10:15 BMI result Body Mass Index 29.2 Const: General: cooperative, healthy appearing and no acute distress Resp: Effort & Inspection: normal respiratory effort and able to speak in complete sentences Cardio: Rate: regular rate Peripheral pulses: Peripheral pulses 2+ throughout GI: Palpation (GI): Soft to palpation Skin: General skin exam: no rashes or lesions noted Extrem: Other: bandage clean dry and intact. Tamiko intact. No erythema or joint effusion. Calf supple nontender. Neurovascularly intact. Procedures Date of Service Date of Service: 05/25/24 Progress Note: A&P Assessment and plan (1) History of total right knee replacement: Status: Acute Assessment and Plan: * Continue pain mgmnt * Begin Aspirin for dvt ppx * begin PT for rT TKA * Dispo planning-Pending PT eval, pain mgmnt Time Spent With Patient Time: Total time managing care of this patient today ____ minutes. Quality Stroke Does the patient have a stroke diagnosis?: No VTE Prior VTE?: No VTE Risk Level:: Surgical - very high VTE Device Contraindication: N/A - Device Ordered VTE Drug Contraindication: N/A - Med Ordered
[2024-05-25] MEDS: Gabapentin 100 MG CAPSULE PO (21:21)
[2024-05-25] MEDS: methocarbamoL 500 MG TABLET PO (21:21)
[2024-05-25] MEDS: Docusate Sodium 100 MG CAPSULE PO (21:21)
[2024-05-26 00:42] VITALS: RESP 18
[2024-05-26 02:57] VITALS: BP 143/78; PULSE 84; RESP 16; TEMP 36.6; O2SAT 97
[2024-05-26 05:26] VITALS: RESP 18
[2024-05-26] MEDS: HYDROmorphone HCl 0.5 MG/0.5 ML SYRINGE IVPUSH (05:53)
[2024-05-26 07:00] LABS: Basophils Percent Auto 0.3 % (0-2); Eosinophils Absolute Auto 0.1 X10*3/uL (0.0-0.4); Eosinophils Percent Auto 0.5 % (0-4); Hematocrit 34.9 % (42.0-52.0); Hemoglobin 11.5 g/dl (14.0-18.0); Imm Gran Abs Auto 0.05 X10*3/uL (0.00-0.03); Imm Gran Pct Auto 0.4 % (0.0-0.4); Lymphocytes Absolute Auto 1.6 X10*3/uL (1.2-4.9); Lymphocytes Percent Auto 13.3 % (20-40); MANUAL DIFF FLAG SCAN; Mean Corpuscular Hemoglobin 29.4 pg (27.0-33.0); Mean Corpuscular Volume 89.3 fL (80.0-98.0); Mean Platelet Volume 10.7 fL (9.4-12.4); Monocytes Absolute Auto 1.7 X10*3/uL (0.1-1.2); Monocytes Percent Auto 14.9 % (2-11); Neutrophils Absolute Auto 8.3 x10*3/uL (2.0-8.3); Neutrophils Percent Auto 70.6 % (45-73); Platelet Count 235 X10*3/uL (160-400); Red Blood Count 3.91 X10*6/uL (4.60-5.80); SCAN SMEAR FLAG 1; White Blood Count 11.7 X10*3/uL (4.8-10.8)
[2024-05-26 07:13] LABS: Anion Gap 11 (12-20); Blood Urea Nitrogen 13 mg/dL (9-16); Calcium 8.4 mg/dL (8.4-10.2); Carbon Dioxide 26 mmol/L (22-29); Chloride 105 mmol/L (96-108); Creatinine Clr Calc Pharmacy 107.1; Estimated Glomerular Filt Rate > 60; Glucose Fasting 96 mg/dL (60-99); Potassium 3.5 mmol/L (3.3-5.1); Sodium 138 mmol/L (135-145)
[2024-05-26 07:50] VITALS: BP 132/69; PULSE 84; RESP 18; TEMP 36.7; O2SAT 98
[2024-05-26] MEDS: oxyCODONE HCl ER 10 MG TAB.ER.12H PO (08:20)
[2024-05-26] MEDS: Docusate Sodium 100 MG CAPSULE PO (08:20)
[2024-05-26] MEDS: Aspirin 325 MG TABLET PO (08:20)
[2024-05-26] MEDS: 0.9 % Sodium Chloride Flush 3 ML SYRINGE IVFLUSH (08:21)
[2024-05-26 08:22] LABS: SLIDE REVIEW VERIFIED
--- NOTE | 2024-05-26 08:29 | PM.DS ---
DS: Providers Provider Date of Service: 05/26/24 Date of admission: 05/24/24 06:00 Primary care physician: Ron Lara NP DS: Diagnosis Discharge Diagnosis (1) History of total right knee replacement: Status: Acute DS: Summary Hospital Course Hospital Course: The patient underwent a successful Right total knee arthroplasty on 05/24/24, was transferred to PACU and then to the floor to recover. During their stay, their vitals were stable, afebrile at 98.1. Labs were unremarkable, H/H 11.5/34.9. POD 1 he was started on ASA for DVT ppx, they also received Physical Therapy services twice a day. Physical therapy should include gait training, ROM to tolerance and quad strength. He is WBAT. Prior to discharge, his dressing was clean dry and intact. The Aquacel dressing should remain intact and dry at all times. Any concerns with the dressing, please contact orthopedic office. No showering. The plan is to be discharged home with vna Time Attestation Discharge Coordination Time (in mins): 30 mins Quality: Safe Use of Opioids Does Pt have an Active Cancer Diagnosis on the Problem List?: No Quality: Stroke Does the patient have a stroke diagnosis?: No Physical Exam Vital Signs: Vital Signs: Last Vital Signs Temp 98.1 F 05/26/24 07:50 Pulse 84 05/26/24 07:50 Resp 18 05/26/24 07:50 BP 132/69 05/26/24 07:50 Pulse Ox 98 05/26/24 07:50 O2 Del Method Room Air 05/26/24 07:50 O2 Flow Rate 8 05/24/24 10:15 BMI result Body Mass Index 29.2 DS: Data Data Completed and Pending Pending studies at discharge: Pending at discharge 05/24/24 08:28 Surgical [PTH] Routine Labs on day of discharge: Laboratory Results - last 24 hr 05/26/24 05:51 WBC 11.7 H RBC 3.91 L Hgb 11.5 L Hct 34.9 L MCV 89.3 MCH 29.4 MCHC 33.0 RDW 13.0 Plt Count 235 MPV 10.7 Immature Gran % (Auto) 0.4 Neut % (Auto) 70.6 Lymph % (Auto) 13.3 L [place] % (Auto) 14.9 H Eos % (Auto) 0.5 Baso % (Auto) 0.3 Lymph # (Auto) 1.6 [place] # (Auto) 1.7 H Eos # (Auto) 0.1 Baso # (Auto) 0.0 Abs Immat Gran (auto) 0.05 H Absolute Neuts (auto) 8.3 Absolute Nucleated RBC 0.000 Nucleated RBC % (auto) 0.0 Smear Tech's Comments VERIFIED Sodium 138 Potassium 3.5 Chloride 105 Carbon Dioxide 26 Anion Gap 11 L BUN 13 Creatinine 0.89 Estim Creat Clear Calc 107.1 Estimated GFR > 60 Fasting Glucose 96 Calcium 8.4 Discharge Plan Discharge Anticipated Discharge Date/Time: 05/26/24 08:27 Patient Disposition: Home Health Service Discharge Diagnosis: RT TkA Referrals: Fatuma Fernandez PA-C [Physician Outside Sales Engineer] - 2 Weeks (06/10/24 12:30 [facility] Fatuma Fernandez PA-C ) Discharge Medications: New aspirin 325 mg Tablet 325 mg PO BID 42 Days Qty: 84 0RF hydromorphone 2 mg Tablet 2 mg PO Q3H PRN (Reason: Pain, Mild (Pain Scale 1-3)) 7 Days Qty: 56 0RF Rx Instructions: Partial Fill upon patient request. gabapentin 100 mg Capsule 100 mg PO BEDTIME 14 Days Qty: 14 0RF acetaminophen 325 mg Tablet 650 mg PO Q6H PRN (Reason: Pain, Mild (Pain Scale 1-3), fever or headache) 30 Days Qty: 240 0RF methocarbamol 500 mg Tablet 500 mg PO BEDTIME 4 Days Qty: 4 0RF oxycodone [OxyContin] 10 mg Tablet,Oral Only,Ext.Rel.12 Hr 10 mg PO BID 10 Days Qty: 20 0RF Rx Instructions: Partial Fill upon patient request. Continued (DME) walker Misc See Rx Instructions .ROUTE .MEDSUPPLY Qty: 1 0RF Rx Instructions: Folding front wheeled walker losartan 100 mg tablet 100 mg PO BEDTIME Discharge Orders: Discharge Order (Routine); Ordered 05/26/24 Ordered By: Unruly Araiza Diet: Regular diet Activity on Discharge: Use cane or walker Stand Alone Forms: Patient Portal Discharge page Print Language: Ghanaian Care Plan Goals: Restore function of joint Health Concerns: None Plan of Treatment: Physical Therapy Pain management DVT prophylaxis Assessment: Physical Therapy for Total knee arthroplasty: WBAT, gait training, ROM 0-12, quad strength Limit stair climbing No showering, no tub bath-keep dressing clean, dry and intact No driving x6 weeks Continue Aspirin twice a day x 6 weeks Follow up with [facility] in 2 weeks:
--- NOTE | 2024-05-26 08:32 | W.MHC.F2F ---
Service Date Service Date: 05/26/24 Encounter Date of encounter: 05/26/24 Reasons for Services Signs and symptoms assessed: Weakness, poor balance, poor gait mechanics Reason for physical therapy: home safety and mobility, therapeutic exercises, restore joint function, gait/transfer training, ADL training and energy conservation Reason for occupational therapy: home safety and mobility, therapeutic exercises, restore joint function, gait/transfer training, assess need for DME, ADL training and energy conservation Homebound: Leaving the home is medically contraindicated at this time without the asist of a device and/or another person due th the listed conditions above and below. Reason homebound: unsteady gait / fall risk, pain with ambulation, poor balance / fall risk and unable to drive Homebound supporting statement: Weakness, poor balance, poor gait mechanics Certification: Based on the above findings, I certify that this patient is confined to the home and needs intermittent retirement care, physical therapy and/or speech therapy, or continues to need occupational therapy. The patient is under my care, and I have initiated the establishment of the plan of care. The patient will be followed by a physician who will periodically review the plan of care. Time Spent With Patient Time: Total time managing care of this patient today ____ minutes.
--- NOTE | 2024-05-26 09:09 | MHC.CM.PN ---
Patient medically cleared for dc home. PT recommending home w/ services. No accepting VNA at this time w/ referrals in place. Per physical therapist ok for outpatient PT. Patient states he will have transportation to outpatient PT appointments. Ortho PA aware and agreeable. Patient will call [facility] to schedule. Family member will transport home at 11am. RN aware.
[2024-05-26] MEDS: HYDROmorphone HCl 2 MG TABLET PO (09:48)
--- NOTE | 2024-06-17 13:42 | PC.NURSE ---
Addendum entered by Otto Anthony RN 07/06/24 15:16: Late entry for 05/25/24: Patient stated pain was 8 out of 10 but requested and was given Dilaudid 4mg at 1813. Original Note: Pt stated pain of 8 out of 10 but requested dilaudid 4mg at this time
== END 2024-05-26 13:36 | disposition home or self-care (01) | DRG 470 ==
LOC: HO.SSSA 06:57 → HO.S3 11:18
PROVIDERS: Physician Assistant; Admitting Provider Orthopaedic Surgery; PCP Nurse Practitioner; Visit Provider Orthopaedic Surgery
PROC: 0SRC0J9 Replacement of Right Knee Joint with Synthetic Substitute, Cemented, Open Approach (ICD-10-PCS; CPT 27447; principal; 2024-05-24 07:30)
DX: M17.11 Unilateral primary osteoarthritis, right knee (principal); F41.1 Generalized anxiety disorder; I10 Essential (primary) hypertension; G89.18 Other acute postprocedural pain; Z87.891 Personal history of nicotine dependence; Z79.899 Other long term (current) drug therapy
CPT/HCPCS: 27447; 36415; 80048; 85025; 86850; 86900; 86901; 87640; 87641; 88305; 88311; 97110; 97116; 97161; C1776; J0131; J0171; J0665; J0690; J1100; J1170; J2250; J2704; J3370; J7120

== ENCOUNTER → 2024-05-24 06:00 | Outpatient (BNV) | payer OTHER, SELFPAY | PROVIDERS: Admitting Provider Physician Assistant; PCP Nurse Practitioner; Visit Provider Orthopaedic Surgery | DX: Z47.1 Aftercare following joint replacement surgery (principal); Z96.651 Presence of right artificial knee joint | CPT/HCPCS: 27447; 99024; G0180 ==

== ENCOUNTER 2024-05-31 10:29 | Outpatient (AMB) | payer OTHER, SELFPAY ==
--- NOTE | 2024-05-31 10:32 | A.OFFVIS_ITS ---
Intake Visit Reasons: PO- Bandage change R TKA w/DR 05/24/24 Intake Note: José Miguel a 63 year old male who presents today for a post operative bandage change s/p right TKA on 05/24/24. Allergies No Known Allergies Allergy (Verified 05/31/24 10:34) HPI HPI PO- Bandage change R TKA w/ 05/24/24: Details: 63-year-old male who returns to the office today for post-op right TKA, 05/24/[address] Bush. He presents today for a bandage change. [facility] Medical History Chronic shoulder pain Chronic knee pain LORY (generalized anxiety disorder) Hemorrhoid History of kidney stones Hx of testicular cancer Hyperparathyroidism Lower urinary tract symptoms (LUTS) Low vitamin D level Osteoarthritis Alcohol use disorder in remission Kidney stones HLD (hyperlipidemia) HTN (hypertension) Gout Surgical History History of parathyroidectomy H/O removal of testicle H/O wrist surgery H/O knee surgery H/O shoulder surgery Social History Household Members: None Housing: House Are you a primary medicare insurance specialist to a significant other at home: No Do you presently have visiting nurse or other home services: No Comment: declining bed alarm, safety and call boswell use reinforced Patient Tobacco Use Status: Former Tobacco user Tobacco use type: Cigarette service: No Current occupational status: employed Current occupation: [employer] dept Review of Systems Const All systems reviewed & are unremarkable except as noted in HPI and below Physical Exam Extrem Other: Right knee: Incision clean, dry and intact. Trace redness around the lateral aspect of the patella. No significant tenderness. He can perform a SLR. Calf supple, nontender. NVI. Assessment & Plan Assessment & Plan (1) History of total right knee replacement: Code(s): Z96.651 - Presence of right artificial knee joint Category: Surgical Plan New aquacel dressing was applied. Patient will begin his first outpatient therapy session tomorrow. I stressed the importance of avoiding excessive activities which would cause increased pain or potential injury. He will see us back for his routine postop appointment next week, sooner if needed. Patient Instructions: Scribed for Unruly Araiza PA-C, by Jose Leung medical records specialist, on 05/31/2024 at 10:30 AM EST.? I, Unruly Araiza PA-C, have personally reviewed and agree with the information entered by the scribe. Coding Level of Care Code Global (85605) Diagnoses History of total right knee replacement Z96.651
== END 2024-05-31 10:53 | disposition home or self-care (01) ==
PROVIDERS: PCP Nurse Practitioner; Visit Provider Physician Assistant
DX: Z96.651 Presence of right artificial knee joint (principal)
CPT/HCPCS: 99024

== ENCOUNTER → 2024-05-31 10:29 | Outpatient (BNVA) | payer OTHER, SELFPAY | PROVIDERS: PCP Nurse Practitioner; Visit Provider Physician Assistant ==

== ENCOUNTER 2024-06-10 10:30 | Outpatient (REF) | payer OTHER, SELFPAY ==
--- NOTE | ~2024-06-10 | XR_ITS ---
EXAMINATION: XR KNEE, RIGHT CLINICAL INFORMATION: Pain. COMPARISON: X-ray 11/25/2023. TECHNIQUE: Two views of the right knee. Bilateral knees, one view. FINDINGS: Status post right total knee arthroplasty, with usual position and alignment of the arthroplasty components. No acute periprosthetic fracture. There is a joint effusion, edema in the soft tissues. Skin yecenia present. XR/XR knee RT 3V IMPRESSION: Postsurgical changes status post right total knee arthroplasty. Study is assigned for dictation on July 02, 2024
== END 2024-06-10 10:31 | disposition home or self-care (01) ==
LOC: HO.HOSX 10:30
PROVIDERS: Visit Provider Physician Assistant
DX: M25.562 Pain in left knee (principal)
CPT/HCPCS: 73562

== ENCOUNTER 2024-06-10 12:21 | Outpatient (AMB) | payer OTHER, SELFPAY ==
--- NOTE | 2024-06-10 12:40 | A.OFFVIS_ITS ---
Intake Visit Reasons: 2WK PO R TKA ekta/ 05/24/24 Intake Note: José Miguel is a 63 year old male who presents today for a post op appointment s/p R TKA ekta/ 05/24/24. Patient reports when he was doing his hyperextension with PT and he is having a lot of pain. Allergies No Known Allergies Allergy (Verified 06/10/24 12:44) HPI HPI 2WK PO R TKA ekta/ 05/24/24: Details: 63-year-old male who presents in the office today 17 days status post right total knee arthroplasty, which was performed on 05/24/[address] Bush. ? ? While in the office today, the patient reports when he was participating in physical therapy, he hyperextended his right knee. He states he is having ?a lot? of pain. ? PFSH Medical History Chronic shoulder pain Chronic knee pain LORY (generalized anxiety disorder) Hemorrhoid History of kidney stones Hx of testicular cancer Hyperparathyroidism Lower urinary tract symptoms (LUTS) Low vitamin D level Osteoarthritis Alcohol use disorder in remission Kidney stones HLD (hyperlipidemia) HTN (hypertension) Gout Surgical History History of parathyroidectomy H/O removal of testicle H/O wrist surgery H/O knee surgery H/O shoulder surgery Social History Household Members: None Housing: House Are you a primary medicare coordinator to a significant other at home: No Do you presently have visiting nurse or other home services: No Comment: declining bed alarm, safety and call boswell use reinforced Patient Tobacco Use Status: Former Tobacco user Tobacco use type: Cigarette service: No Current occupational status: employed Current occupation: [employer] dept Review of Systems Const All systems reviewed & are unremarkable except as noted in HPI and below Physical Exam Const General: cooperative, healthy appearing and no acute distress Resp Effort & Inspection: normal respiratory effort and able to speak in complete sentences Cardio Rate: regular rate Peripheral pulses: Peripheral pulses 2+ throughout GI Palpation (GI): Soft to palpation Skin Lesions: no lesions Rashes: no rashes Extrem Other: Right knee: Incision site is clean, dry, and intact. Tamiko are intact. No surrounding erythema or drainage. No signs of infection. ROM is 10-85 degrees. NVI.? Assessment & Plan Assessment & Plan (1) History of total right knee replacement: Code(s): Z96.651 - Presence of right artificial knee joint Category: Surgical Plan Mr. Villafuerte is a 63-year-old male who presents in the office today 17 days status post right total knee arthroplasty, which was performed on 05/24/[address] Bush. ? ? While in the office today, the patient reports when he was participating in physical therapy, he hyperextended his right knee. He states he is having ?a lot? of pain.? ? Tamiko were removed and steri-stripes were applied. The office will appeal to the insurance to get approval for the oxycontin. I recommend for the patient to attend formal physical therapy, however, the patient states [place] [facility] and feels the therapist was having him perform hyperextension exercises with his right knee causing him an increased amount of pain and causing a set back on his recovery. Therefore, he has elected to discontinue physical therapy at this time. I advised that patient against this. I encouraged him to continue his home exercises in the meantime. ? ? I sent a prescription for an antibiotic prophylactically for possible dental work in the future. However, the patient was educated they should not have any major dental work for the first 3 months post op after a right total knee arthroplasty.? ? Follow-up will be in four weeks with Dr. Bush, or sooner if needed. ? ? X-rays of the right knee which were obtained while in the office today and were reviewed by me, Fatuma Fernandez PA-C, revealed intact orthopedic hardware. ? Orders: Orders XR knee RT 3V Today M25.569 - Pain in unspecified knee Medications: New amoxicillin 2,000 mg (4 x 500 mg) PO ONCE 4 tabs 0RF take 4 tabs by mouth 1 hour prior to dental ppx 1 day Patient Instructions: Scribed by Anni Sierra lpn medical assistant, for Fatuma Fernandez PA-C on 06/10/2024 at 1:04 pm, EST.? Coding Level of Care Code Global (77656) Diagnoses History of total right knee replacement Z96.651
== END 2024-06-10 13:09 | disposition home or self-care (01) ==
PROVIDERS: PCP Nurse Practitioner; Visit Provider Physician Assistant
DX: Z96.651 Presence of right artificial knee joint (principal)
CPT/HCPCS: 99024

== ENCOUNTER 2024-07-01 09:10 | Outpatient (AMB) | payer OTHER, SELFPAY ==
--- NOTE | 2024-07-01 09:12 | MHC.OFFVIS ---
Intake Visit Reasons: 6WK PO: R TKA w/ 05/24/24 Intake Note: José Miguel is a 63 year old male who presents today for a post op appointment s/p right TKA with Dr. Bush, [facility] 05/24/24. Patient has been going to PT, which he finds helpful. He does take OxyContin as well as Dilaudid which gave him fairly good relief. States that he takes the OxyContin before he goes to bed to help him sleep. He denies fevers or chills. The patient states that he did take a break from physical therapy for a while because it was aggravating his pain. He has returned. Allergies No Known Allergies Allergy (Verified 07/01/24 09:12) Medication List - Last Reconciled 07/01/24 by Venkatesh Bush MD amoxicillin 2,000 mg (4 x 500 mg) PO ONCE 1 day aspirin 325 mg PO BID 42 days hydromorphone 2 mg PO Q4H PRN losartan 100 mg PO BEDTIME oxycodone ER (OxyContin) 10 mg PO Q12H 10 days walker Folding front wheeled walker [facility] Medical History Chronic shoulder pain Chronic knee pain LORY (generalized anxiety disorder) Hemorrhoid History of kidney stones Hx of testicular cancer Hyperparathyroidism Lower urinary tract symptoms (LUTS) Low vitamin D level Osteoarthritis Alcohol use disorder in remission Kidney stones HLD (hyperlipidemia) HTN (hypertension) Gout Surgical History (Reviewed 05/31/24 @ 10:35 by Criss Ortega COUNTS INCLUDE 234 BEDS AT [facility]) History of parathyroidectomy H/O removal of testicle H/O wrist surgery H/O knee surgery H/O shoulder surgery Social History Household Members: None Housing: House Are you a primary personal care home administrator to a significant other at home: No Do you presently have visiting nurse or other home services: No Comment: declining bed alarm, safety and call boswell use reinforced Patient Tobacco Use Status: Former Tobacco user Tobacco use type: Cigarette service: No Current occupational status: employed Current occupation: [employer] Physical Exam Extrem Other: Right knee examination shows that the surgical incision is well healed, no erythema, range of motion from -5 degrees to 110 degrees, is patella tracks well Assessment & Plan Assessment & Plan (1) Right knee pain: Code(s): M25.561 - Pain in right knee Category: Medical Plan Mr. Villafuerte continues to do fairly well after undergoing right total knee replacement surgery on 05/24/2024. He does remain somewhat stiff. He is encouraged to continue with his physical therapy exercises. I did refill his prescriptions for Dilaudid and OxyContin. He does know to take antibiotics before any dental work. He will contact me prior to his follow-up appointment in 6 weeks should any questions or concerns arise. Feel free to call me at any time should questions regarding his orthopedic management arise. Medications: Changed From hydromorphone Partial Fill upon patient request. 2 mg PO Q4H PRN 42 tabs 0RF pain To hydromorphone Partial Fill upon patient request. 2 mg PO Q6H PRN 40 tabs 0RF pain Refilled oxycodone ER (OxyContin) Partial Fill upon patient request. Prior authorization was not successful. The patient will pay out of pocket. Thanks 10 mg PO Q12H 10 days 20 tabs 0RF Coding Level of Care Code Global (81243) Diagnoses Right knee pain M25.561
== END 2024-07-01 09:37 | disposition home or self-care (01) ==
PROVIDERS: PCP Nurse Practitioner; Visit Provider Orthopaedic Surgery
DX: M25.561 Pain in right knee (principal)
CPT/HCPCS: 99024

== ENCOUNTER → 2024-07-01 09:10 | Outpatient (BNVA) | payer OTHER, SELFPAY | PROVIDERS: PCP Nurse Practitioner; Visit Provider Orthopaedic Surgery ==

== ENCOUNTER 2024-08-19 09:09 | Outpatient (AMB) | payer OTHER, SELFPAY ==
--- NOTE | 2024-08-19 09:13 | MHC.OFFVIS ---
Vital Signs 08/19/24 09:16 Height 6 ft 1 in Weight 220 lb BMI 29.0 Intake Visit Reasons: PO: R TKA w/DR 05/24/24 Intake Note: José Miguel is a 64 year old male who presents with complaints of mild intermittent discomfort in his right knee after undergoing right total knee replacement surgery on 05/24/2024. He continues to go to formal physical therapy here at [facility]. He denies any fevers or chills. Does intermittently take a Dilaudid tablet at night to help him sleep. Allergies No Known Allergies Allergy (Verified 08/19/24 09:16) Medication List - Last Reconciled 08/19/24 by Venkatesh Bush MD amoxicillin 2,000 mg (4 x 500 mg) PO ONCE 1 day hydromorphone 2 mg PO Q8H PRN losartan 100 mg PO BEDTIME walker Folding front wheeled walker [facility] Medical History Chronic shoulder pain Chronic knee pain LORY (generalized anxiety disorder) Hemorrhoid History of kidney stones Hx of testicular cancer Hyperparathyroidism Lower urinary tract symptoms (LUTS) Low vitamin D level Osteoarthritis Alcohol use disorder in remission Kidney stones HLD (hyperlipidemia) HTN (hypertension) Gout Surgical History History of parathyroidectomy H/O removal of testicle H/O wrist surgery H/O knee surgery H/O shoulder surgery Social History Household Members: None Housing: House Are you a primary interior plant caretaker to a significant other at home: No Do you presently have visiting nurse or other home services: No Comment: declining bed alarm, safety and call boswell use reinforced Patient Tobacco Use Status: Former Tobacco user Tobacco use type: Cigarette service: No Current occupational status: employed Current occupation: [employer] Physical Exam Vital Signs: BMI result Body Mass Index 29.0 Const Other: Well-nourished well-developed very friendly male awake alert and oriented x3 in no acute distress Extrem Other: Bilateral lower extremity examination shows good capillary refill, no skin lesions noted, normal sensation light touch Right knee examination shows that the surgical incision is well healed, no erythema, range of motion from -3 degrees to 115 degrees, his patella tracks well Assessment & Plan Assessment & Plan (1) Right knee pain: Code(s): M25.561 - Pain in right knee Category: Medical Plan Mr. Villafuerte continues to do well after undergoing right total knee replacement surgery on 05/24/2024. He will continue going to formal physical therapy for now. He will gradually transition to a home exercise program. Does know to take antibiotics before any dental work. I did refill his prescription for Dilaudid. He will contact me prior to his follow-up appointment in 3 months should any questions or concerns arise. Feel free to call me at any time should questions regarding his orthopedic management arise. I spent 22 minutes in reviewing the patient's records and imaging studies, seeing the patient and documenting in the medical record. Medications: Changed From hydromorphone Partial Fill upon patient request. 2 mg PO Q8H PRN 35 tabs 0RF pain To hydromorphone Partial Fill upon patient request. 2 mg PO Q12H PRN 30 tabs 0RF pain Coding Level of Care Code Est Pt Level 3 (23406) Complex EM visit Add On G2211 Diagnoses Right knee pain M25.561
[2024-08-19 09:16] VITALS: BMI 29.0
== END 2024-08-19 09:39 | disposition home or self-care (01) ==
PROVIDERS: PCP Nurse Practitioner; Visit Provider Orthopaedic Surgery
DX: Z47.1 Aftercare following joint replacement surgery (principal); Z96.651 Presence of right artificial knee joint
CPT/HCPCS: 99024

== ENCOUNTER → 2024-08-19 09:09 | Outpatient (BNVA) | payer OTHER, SELFPAY | PROVIDERS: PCP Nurse Practitioner; Visit Provider Orthopaedic Surgery ==

== ENCOUNTER 2024-09-02 08:00 | Outpatient (RCR) | payer OTHER, SELFPAY ==
--- NOTE | 2024-06-01 15:57 | MHC.PT.EP ---
[facility] [place] Office [place] Office [place] Office [address] Yogesh De Los Santos [address] [phone] F: [phone] F: [phone] F: [phone] F: [phone] Physical Therapy Plan of Care Date of Evaluation: 06/01/24 Date of Surgery: 05/24/24 Diagnosis: RTKA 05/24/24 Assessment: Pt. is a 63 y/o male with Hx of bilateral shoulder surgery, hypertension and arthritis referred to PT S/P RTKA on 05/24/24. Evaluation finds limited R knee ROM, decreased R LE strength, and RLE swelling/pitting edema. Resulting in functional limitations including sitting and standing for prolonged periods of time, walking, negotiating stairs and curbs, and gardening. Pt. is an appropriate candidate for skilled physical therapy to address their physical impairments in order to improve their functional ability. Frequency and Duration: The patient will be seen 2X/wk for 6 wks Short Term Goals: -Increase R knee extension to 0 degrees (IR: -5 degrees) -Increase R knee flexion to 120 degrees (IR: 80 degrees) Assisted Goals: -Increase LEFI score by 9 points. -Reciprocally negotiate stairs (IR: step to pattern) -Walk 1 mile w/o sx's >2/10 -DC use of AD -I w/ HEP Treatment Plan: Modalities to reduce pain, spasms and effusion. Manual therapy to restore motion and function. Therapeutic exercise to improve strength and flexibility. Neuromuscular re-education for posture and balance. Therapeutic activities to return to functional activities of daily living. Electronically signed by: Gaurang Lantigua PT. Please sign and return to therapist. Thank you for your referral.
--- NOTE | 2024-06-01 15:57 | MHC.PT.EP ---
[facility] [place] Office [place] Office [place] Office [address] Yogesh De Los Santos [address] [phone] F: [phone] F: [phone] F: [phone] F: [phone] Physical Therapy Plan of Care Date of Evaluation: 06/01/24 Date of Surgery: 05/24/24 Diagnosis: RTKA 05/24/24 Assessment: Pt. is a 63 y/o male with Hx of bilateral shoulder surgery, hypertension and arthritis referred to PT S/P RTKA on 05/24/24. Evaluation finds limited R knee ROM, decreased R LE strength, and RLE swelling/pitting edema. Resulting in functional limitations including sitting and standing for prolonged periods of time, walking, negotiating stairs and curbs, and gardening. Pt. is an appropriate candidate for skilled physical therapy to address their physical impairments in order to improve their functional ability. Frequency and Duration: The patient will be seen 2X/wk for 6 wks Short Term Goals: -Increase R knee extension to 0 degrees (IR: -5 degrees) -Increase R knee flexion to 120 degrees (IR: 80 degrees) Longterm Goals: -Increase LEFI score by 9 points. -Reciprocally negotiate stairs (IR: step to pattern) -Walk 1 mile w/o sx's >2/10 -DC use of AD -I w/ HEP Treatment Plan: Modalities to reduce pain, spasms and effusion. Manual therapy to restore motion and function. Therapeutic exercise to improve strength and flexibility. Neuromuscular re-education for posture and balance. Therapeutic activities to return to functional activities of daily living. Electronically signed by: Gaurang Lantigua PT. Please sign and return to therapist. Thank you for your referral.
--- NOTE | 2024-06-01 17:26 | MHC.PT.EP ---
[facility] [place] Office [place] Office [place] Office [address] Yogesh De Los Santos [address] [phone] F: [phone] F: [phone] F: [phone] F: [phone] Physical Therapy Plan of Care Date of Evaluation: 06/01/24 Date of Surgery: 05/24/24 Diagnosis: RTKA 05/24/24 Assessment: Pt. is a 63 y/o male with Hx of bilateral shoulder surgery, hypertension and arthritis referred to PT S/P RTKA on 05/24/24. Evaluation finds limited R knee ROM, decreased R LE strength, and RLE swelling/pitting edema. Resulting in functional limitations including sitting and standing for prolonged periods of time, walking, negotiating stairs and curbs, and gardening. Pt. is an appropriate candidate for skilled physical therapy to address their physical impairments in order to improve their functional ability. Frequency and Duration: The patient will be seen 2X/wk for 6 wks Short Term Goals: -Increase R knee extension to 0 degrees (IR: -5 degrees) -Increase R knee flexion to 120 degrees (IR: 80 degrees) Penitentiary Goals: -Increase LEFI score by 9 points. -Reciprocally negotiate stairs (IR: step to pattern) -Walk 1 mile w/o sx's >2/10 -DC use of AD -I w/ HEP Treatment Plan: Modalities to reduce pain, spasms and effusion. Manual therapy to restore motion and function. Therapeutic exercise to improve strength and flexibility. Neuromuscular re-education for posture and balance. Therapeutic activities to return to functional activities of daily living. Electronically signed by: Gaurang Lantigua PT. Please sign and return to therapist. Thank you for your referral.
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
== END 2024-09-02 13:16 | disposition home or self-care (01) ==
LOC: HO.PT 08:00
PROVIDERS: PCP Nurse Practitioner; Visit Provider Physician Assistant
DX: Z96.651 Presence of right artificial knee joint (principal)
CPT/HCPCS: 97110; 97140; 97161; 97162

== ENCOUNTER 2024-11-10 08:46 | Outpatient (REF) | payer OTHER, SELFPAY | END 2024-11-10 08:47 | disposition home or self-care (01) | LOC: HO.HOSX 08:46 | PROVIDERS: Visit Provider Orthopaedic Surgery | DX: M25.561 Pain in right knee (principal) | CPT/HCPCS: 73562 ==

== ENCOUNTER 2024-11-10 10:24 | Outpatient (AMB) | payer OTHER, SELFPAY ==
[2024-11-10 10:26] VITALS: BMI 29.0
--- NOTE | 2024-11-10 10:26 | MHC.OFFVIS ---
Vital Signs 11/10/24 10:26 Height 6 ft 1 in Weight 220 lb BMI 29.0 Intake Visit Reasons: OV: R TKA w/DR 05/24/24 Intake Note: José Miguel is a 64 year old male who presents with complaints of mild intermittent discomfort in his right knee after undergoing right total knee replacement surgery on 05/24/2024. He continues with his gym exercise program. He denies any fevers or chills. He does not take any medicines for his discomfort. Allergies No Known Allergies Allergy (Verified 11/10/24 10:27) Medication List - Last Reconciled 11/10/24 by Venkatesh Bush MD losartan 100 mg PO BEDTIME PFSH Medical History Chronic shoulder pain Chronic knee pain LORY (generalized anxiety disorder) Hemorrhoid History of kidney stones Hx of testicular cancer Hyperparathyroidism Lower urinary tract symptoms (LUTS) Low vitamin D level Osteoarthritis Alcohol use disorder in remission Kidney stones HLD (hyperlipidemia) HTN (hypertension) Gout Surgical History History of parathyroidectomy H/O removal of testicle H/O wrist surgery H/O knee surgery H/O shoulder surgery Social History Household Members: None Housing: House Are you a primary customer care voice consultant to a significant other at home: No Do you presently have visiting nurse or other home services: No Comment: declining bed alarm, safety and call boswell use reinforced Patient Tobacco Use Status: Former Tobacco user Tobacco use type: Cigarette service: No Current occupational status: employed 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 Physical Exam Vital Signs: BMI result Body Mass Index 29.0 Const Other: Well-nourished well-developed very friendly female awake alert and oriented x3 in no acute distress Extrem Other: Bilateral lower extremity examination shows good capillary refill, no skin lesions noted, normal sensation light touch Right knee examination shows that the surgical incision is well healed, no erythema, full active extension and flexion to 120 degrees, his patella tracks well Results Reviewed Results Reviewed: X-rays of the patient's right knee taken today show a total knee arthroplasty in good position with no signs of loosening, no acute bony abnormalities Assessment & Plan Assessment & Plan (1) Right knee pain: Code(s): M25.561 - Pain in right knee Category: Medical Plan José Miguel continues to do very well after undergoing right total knee replacement surgery on 05/24/2024. He will continue with his exercise program. He does know to take antibiotics before any dental work. He will contact me prior to his follow-up appointment in 3 months should any questions or concerns arise. Feel free to call me at any time should questions regarding his orthopedic management arise. I spent 22 minutes in reviewing the patient's records and imaging studies, seeing the patient and documenting in the medical record. Orders: Orders XR knee RT 3V Today M25.561 - Pain in right knee Coding Level of Care Code Est Pt Level 3 (32784) Complex EM visit Add On G2211 Diagnoses Right knee pain M25.561
== END 2024-11-10 10:51 | disposition home or self-care (01) ==
PROVIDERS: PCP Nurse Practitioner; Visit Provider Orthopaedic Surgery
DX: M25.561 Pain in right knee (principal)
CPT/HCPCS: 99213

== ENCOUNTER → 2025-03-02 07:54 | Outpatient (BNV) | payer OTHER, SELFPAY | PROVIDERS: Visit Provider Radiology Diagnostic Radiology | DX: M25.561 Pain in right knee (principal); Z96.651 Presence of right artificial knee joint | CPT/HCPCS: 73562 ==

== ENCOUNTER 2025-03-02 07:55 | Outpatient (AMB) | payer OTHER, SELFPAY ==
--- OUTSIDE RECORDS SUMMARY | 2025-03-02 07:58 | XMS_ITS | Clinical Summary ---
Author Organization [facility] Address [address] [place] [address] Phone Care Team Providers Care Gray Mixing Operator Name Role Phone Unavailable Primary Care Provider Unavailabl e Allergies No known active allergies Social History Tobacco Use Types Packs/Day Years Used Date Smoking Tobacco: Some Days Sex and Gender Information Value Date Recorded Sex Assigned at Not on file Gender Identity Not on file Sexual Orientation Not on file Last Filed Vital Signs Vital Sign Reading Time Taken Comments Blood Pressure 156/95 05/31/2014 2:03 PM EDT Pulse 60 05/31/2014 2:03 PM EDT Temperature 37.1 ??C (98.8 ??F) 05/31/2014 2:03 PM ED T Respiratory Rate - - Oxygen Saturation - - Inhaled Oxygen Concentration - - Weight 103.2 kg (227 lb 9.6 oz) 05/31/2014 2:03 PM EDT Height - - Body Mass Index - - Plan of Treatment Not on file Medical Devices Not on file [address] OZIEL VIRAMONTES Mark D Personal/Famil y Self 1960 [address] Mark D Personal/Famil y Self 1960 [address] Mark D Personal/Famil y Self 1960 [address] Mark D Personal/Famil y Self 1960 [address] Mark D Personal/Famil y Self 1960 56 JOSLY[address]IEL STEPHENS Mark D Personal/Famil y Self 1960 [address] Mark D Personal/Famil y Self 1960 [address] Mark D Personal/Famil y Self 1960 [address] Additional Source Comments The information contained in this document represents components of the legal health record. It is not the complete legal health record.[facility]
--- NOTE | 2025-03-02 08:02 | A.OFFVIS_ITS ---
Intake Visit Reasons: Return to work talk: R TKA w/ 05/24/24 Intake Note: José Miguel is a 64 year old male who presents today to discuss work status after undergoing right total knee replacement surgery on 05/24/2024. The patient reports mild intermittent discomfort and stiffness in his right knee. He denies any fevers or chills. He would like to do more physical therapy to help with his weakness and stiffness before he returns to work. Allergies No Known Allergies Allergy (Verified 03/02/25 08:08) Medication List - Last Reconciled 03/02/25 by Venkatesh Bush MD losartan 100 mg PO BEDTIME PFSH Medical History Chronic shoulder pain Chronic knee pain LORY (generalized anxiety disorder) Hemorrhoid History of kidney stones Hx of testicular cancer Hyperparathyroidism Lower urinary tract symptoms (LUTS) Low vitamin D level Osteoarthritis Alcohol use disorder in remission Kidney stones HLD (hyperlipidemia) HTN (hypertension) Gout Surgical History History of parathyroidectomy H/O removal of testicle H/O wrist surgery H/O knee surgery H/O shoulder surgery Social History Household Members: None Housing: House Are you a primary healthcare educator to a significant other at home: No Do you presently have visiting nurse or other home services: No Comment: declining bed alarm, safety and call boswell use reinforced Patient Tobacco Use Status: Former Tobacco user Tobacco use type: Cigarette service: No Current occupational status: employed Current occupation: [employer] dept Physical Exam Extrem Other: Right knee examination shows mild discomfort with range of motion, his patella tracks well Results Reviewed Results Reviewed: X-rays of the patient's right knee taken today show a total knee arthroplasty in good position with no signs of loosening, no acute bony abnormalities Assessment & Plan Assessment & Plan (1) Right knee pain: Code(s): M25.561 - Pain in right knee Category: Medical Plan Mr. Villafuerte continues to do well after undergoing right total knee replacement s urgery. I did give him a prescription to go back to physical therapy. I will keep him out of work until his stiffness and strength have improved. He will contact me prior to his annual follow-up appointment should any questions or concerns arise. I spent 20 minutes in reviewing the patient's records and imaging studies, seeing the patient and documenting in the medical record. Orders: Orders XR knee RT 3V Today M25.561 - Pain in right knee PT Evaluation and Treatment Today M25.561 - Pain in right knee Coding Level of Care Code Est Pt Level 3 (75545) Complex EM visit Add On G2211 Diagnoses Right knee pain M25.561
== END 2025-03-02 08:19 | disposition home or self-care (01) ==
LOC: HO.HOS 07:56
PROVIDERS: PCP Nurse Practitioner; Visit Provider Orthopaedic Surgery
DX: M25.561 Pain in right knee (principal); Z96.651 Presence of right artificial knee joint
CPT/HCPCS: 99213

== ENCOUNTER 2025-03-02 09:08 | Outpatient (REF) | payer OTHER, SELFPAY ==
--- NOTE | ~2025-03-02 | XR_ITS ---
EXAMINATION: XR KNEE 3 VIEWS RIGHT HISTORY: M25.561 - Pain in right knee COMPARISON: There are no prior studies available for comparison. FINDINGS: Three views of the right knee are submitted. The patient is again noted to be status post total knee arthroplasty. The orthopedic elements are in anatomic alignment. The previously described periprosthetic lucency about the femoral component is less prominent. There is no fracture or dislocation. Again seen is a 2.3 cm osseous density in the posterior aspect of the knee which may be within a Vivar's cyst. XR/XR knee RT 3V IMPRESSION: Status post right total knee arthroplasty. The previously described periprosthetic lucency about the femoral component is less prominent. Electronically signed by: Tyshawn Sheets MD 03/02/2025 08:19 AM EDT
--- OUTSIDE RECORDS SUMMARY | 2025-03-03 09:45 | XMS_ITS | Clinical Summary ---
Author Organization [facility] Address [address] [place] [address] Phone Care Team Providers Care Training Professional Name Role Phone Unavailable Primary Care Provider [...] It is not the complete legal health record.[facility]
== END 2025-03-02 09:09 | disposition home or self-care (01) ==
LOC: HO.HOSX 09:08
PROVIDERS: Visit Provider Orthopaedic Surgery
DX: M25.561 Pain in right knee (principal)
CPT/HCPCS: 73562